=== PATIENT | female | born 1975 | race Caucasian/White ===

== ENCOUNTER 2017-01-02 19:44 | Emergency (ER) | payer OTHER ==
[~2017-01-02] VITALS: Wt 74.8 kg
[2017-01-02] MEDS ORDERED: LAMOTRIGINE100 MG PO (20:06)
[2017-01-02] MEDS ORDERED: ATARAX,VISTARIL50 MG PO (20:06)
[2017-01-02] MEDS ORDERED: GABAPENTIN800 MG PO (20:07)
[2017-01-02] MEDS ORDERED: CITALOPRAM HYDR40 MG PO (20:07)
[2017-01-02] MEDS ORDERED: TOPIRAMATE100 M2 PO (20:07)
[2017-01-02 20:51] LABS: BASO # 0.1 10*3/uL (0.0-0.1); BASO % 0.8 % (0.0-1.0); EOS # 0.2 10*3/uL (0.0-0.4); EOS % 2.5 % (1.0-4.0); HEMATOCRIT 35.9 % (37.0-47.0); HEMOGLOBIN 11.9 g/dl (12.0-16.0); LYMPH # 2.4 10*3/uL (1.3-4.4); LYMPH % 28.3 % (27.0-41.0); MEAN CELL VOLUME 98.9 fl (81.0-99.0); MEAN CORPUSCULAR HGB 32.8 pg (27.0-31.0); MEAN CORPUSCULAR HGB CONC 33.1 g/dl (33.0-37.0); MEAN PLATELET VOLUME 10.8 fl (9.6-12.3); MONO # 0.8 10*3/uL (0.1-1.0); MONO % 9.7 % (3.0-9.0); NEUT % 58.5 % (47.0-73.0); PLATELET COUNT AUTOMATED 344 10*3/uL (130-400); RED BLOOD COUNT 3.63 10*6/uL (4.10-5.10); RED CELL DISTRI WIDTH 12.4 % (0-14.5); WHITE BLOOD COUNT 8.5 10*3/uL (4.8-10.8)
[2017-01-02 21:06] LABS: ALBUMIN 3.7 gm/dl (3.1-4.5); ALKALINE PHOSPHATASE 76 U/L (45-117); BILIRUBIN, TOTAL 0.3 mg/dl (0.2-1.0); BUN 14 mg/dl (7-24); CARBON DIOXIDE 23 mmol/L (21-32); CHLORIDE 108 mmol/L (98-107); EST GLOM FILT AFRICAN AMERICAN > 60 ml/min; GLUCOSE 83 mg/dL (65-99); POTASSIUM 4.1 mmol/L (3.5-5.1); SGOT/AST 25 IU/L (3-35); SGPT/ALT 39 U/L (12-78); SODIUM 140 mmol/L (136-145); TOTAL PROTEIN 7.3 gm/dL (6.4-8.2)
[2017-01-02] MEDS ORDERED: HYDROCODONE BIT1 T11 PO (21:51)
[2017-01-02] MEDS ORDERED: CLINDAMYCIN HC300 MG PO (21:51)
== END 2017-01-02 21:54 | disposition home or self-care (01) ==
LOC: ED 19:44
PROVIDERS: Physician Assistant
DX: L03.211 Cellulitis of face (principal); Z91.041 Radiographic dye allergy status

== ENCOUNTER 2017-07-26 16:10 | Emergency (ER) | payer OTHER ==
[~2017-07-26] VITALS: Wt 74.8 kg
[~2017-07-26 16:10] MED LIST: ATARAX,VISTARIL50 MG PO; CITALOPRAM HYDR40 MG PO; CLINDAMYCIN HC300 MG PO; GABAPENTIN800 MG PO; HYDROCODONE BIT1 T11 PO; LAMOTRIGINE100 MG PO; TOPIRAMATE100 M2 PO
[2017-07-26] MEDS ORDERED: NORCO 5-325 TA1 EACH PO (20:44)
[2017-07-26] MEDS ORDERED: ROBAXIN-750750 MG PO (20:44)
[2017-07-26] MEDS ORDERED: MEDROL DOSEPAK4 MG PO (20:44)
== END 2017-07-26 20:51 | disposition home or self-care (01) ==
LOC: ED 16:10
DX: M54.2 Cervicalgia (principal); Z91.041 Radiographic dye allergy status

== ENCOUNTER 2018-07-28 12:10 | Emergency (ER) | payer OTHER ==
[~2018-07-28] VITALS: Ht 160 cm; Wt 73.5 kg
[~2018-07-28 12:10] MED LIST changes: +MEDROL DOSEPAK4 MG PO; +NORCO 5-325 TA1 EACH PO; +ROBAXIN-750750 MG PO
[2018-07-28] MEDS ORDERED: Motrin,Rufen800 MG PO (12:54)
[2018-07-28] MEDS ORDERED: CLINDAMYCIN HC300 MG PO (12:54)
[2018-07-31] MEDS ORDERED: ZOFRAN4 MG PO (17:29)
[2018-07-31] MEDS ORDERED: Peridex 473 ML473 ML PO (17:29)
== END 2018-07-28 13:51 | disposition home or self-care (01) ==
LOC: ED 12:10
DX: K04.7 Periapical abscess without sinus (principal); Z91.041 Radiographic dye allergy status; Z79.2 Long term (current) use of antibiotics; Z79.899 Other long term (current) drug therapy; Z79.891 Long term (current) use of opiate analgesic

== ENCOUNTER 2019-04-06 03:14 | Emergency (ER) | payer OTHER ==
[~2019-04-06] VITALS: Ht 160 cm; Wt 63.5 kg
--- NOTE | ~2019-04-06 | EKG ---
[place], [place] ELECTROCARDIOGRAM REPORT NAME: ELIZA MCCURDY UNIT #: [id number] ROOM: DOCTOR: EPIPHANY DRAFT REPORT BIRTHDATE: [birth year] [facility] Test Date: 2019-04-06 Test Time: 04:00:18 Pat Name: ELIZA MCCURDY Department: ER Room: Gender: F Cnc Supervisor: Louie Godinez : 1975 Requested By: RODOLFO RODRÍGUEZ Order Number: [id number] Reading MD: Antoni Benz MD Measurements Intervals [place] Rate: 91 P: 36 VA: 214 QRS: 34 QRSD: 102 T: -1 QT: 372 QTc: 458 Interpretive Statements Sinus rhythm Prolonged VA interval Anterior infarct, old Electronically Signed On 04-06-2019 3:44:23 PDT by Antoni Benz MD CM:EKGRPT:ELECTROCARDIOGRAM REPORT [id number] RODOLFO RODRÍGUEZ MD EPIPHANY DRAFT REPORT RODOLFO RODRÍGUEZ MD
[~2019-04-06 03:14] MED LIST changes: +Motrin,Rufen800 MG PO; +Peridex 473 ML473 ML PO; +ZOFRAN4 MG PO
[2019-04-06 03:34] LABS: BILIRUBIN NEGATIVE (NEGATIVE); BLOOD NEGATIVE (NEGATIVE); CLARITY CLEAR (CLEAR); COLOR YELLOW (YELLOW); GLUCOSE NEGATIVE (NEGATIVE); KETONE NEGATIVE (NEGATIVE); LEUKO ESTERASE NEGATIVE (NEGATIVE); NITRITE NEGATIVE (NEGATIVE); SPECIFIC GRAVITY <= 1.005 (1.005-1.030); UROBILINOGEN 0.2 E.U./dl (0.2-1.0)
[2019-04-06 03:42] LABS: EPITHELIAL CELLS 0-5
[2019-04-06 04:05] LABS: BASO # 0.1 10*3/uL (0.0-0.1); BASO % 0.7 % (0.0-1.0); EOS # 0.4 10*3/uL (0.0-0.4); EOS % 3.6 % (1.0-4.0); HEMATOCRIT 36.3 % (37.0-47.0); HEMOGLOBIN 11.6 g/dl (12.0-16.0); LYMPH # 3.7 10*3/uL (1.3-4.4); LYMPH % 37.1 % (27.0-41.0); MEAN CORPUSCULAR HGB 34.5 pg (27.0-31.0); MEAN PLATELET VOLUME 11.6 fl (9.6-12.3); MONO # 0.9 10*3/uL (0.1-1.0); MONO % 8.8 % (3.0-9.0); NEUT % 49.5 % (47.0-73.0); PLATELET COUNT AUTOMATED 239 10*3/uL (130-400); RED BLOOD COUNT 3.36 10*6/uL (4.10-5.10); RED CELL DISTRI WIDTH 12.9 % (0-14.5)
[2019-04-06 04:21] LABS: ALBUMIN 3.7 gm/dl (3.1-4.5); ALKALINE PHOSPHATASE 76 U/L (45-117); BUN 4 mg/dl (7-24); CHLORIDE 116 mmol/L (98-107); CREATININE 0.89 mg/dL (0.55-1.02); LIPASE 143 U/L (73-393); POTASSIUM 3.4 mmol/L (3.5-5.1); SGOT/AST 9 IU/L (3-35); SGPT/ALT 17 U/L (12-78); SODIUM 145 mmol/L (136-145); TOTAL PROTEIN 7.3 gm/dL (6.4-8.2)
[2019-04-06 04:24] LABS: ACT PARTIAL THROMBO TIME 29.3 SECONDS (20.0-32.1); INTERNATIONAL NORM RATIO 0.9 (2.0-3.5)
[2019-04-06 04:42] LABS: TROPONIN I < 0.015 ng/ml (<0.045)
== END 2019-04-06 05:15 | disposition home or self-care (01) ==
LOC: ED 03:14
PROVIDERS: Emergency Medicine Emergency Medical Services
DX: G43.909 Migraine, unspecified, not intractable, without status migrainosus (principal); F41.9 Anxiety disorder, unspecified; F41.0 Panic disorder [episodic paroxysmal anxiety]; R42 Dizziness and giddiness; R20.0 Anesthesia of skin; R20.2 Paresthesia of skin; R07.89 Other chest pain; Z91.041 Radiographic dye allergy status; Z79.899 Other long term (current) drug therapy

== ENCOUNTER 2019-06-03 17:29 | Emergency (ER) | payer OTHER ==
[~2019-06-03] VITALS: Ht 160 cm; Wt 61.2 kg
--- NOTE | ~2019-06-03 | EKG ---
[place], [place] ELECTROCARDIOGRAM REPORT NAME: ELIZA MCCURDY UNIT #: [id number] ROOM: DOCTOR: EPIPHANY DRAFT REPORT BIRTHDATE: [birth year] [facility] Test Date: 2019-06-03 Test Time: 17:30:21 Pat Name: ELIZA MCCURDY Department: Room: Gender: F [employer]: : 1975 Requested By: DEEPALI MORALES Order Number: [id number] Reading MD: Bren Schaefer MD Measurements Intervals [place] Rate: 93 P: 30 SD: 175 QRS: 35 QRSD: 91 T: 4 QT: 352 QTc: 438 Interpretive Statements Sinus rhythm Compared to ECG 04/06/2019 04:00:18 First degree AV block no longer present Myocardial infarct finding no longer present Electronically Signed On 06-14-2019 7:39:48 PDT by Bren Schaefer MD CM:EKGRPT:ELECTROCARDIOGRAM REPORT [id number] DEEPAIL SHEIKH DRAFT REPORT DEEPALI MORALES MD
[2019-06-03 17:49] LABS: BASO # 0.1 10*3/uL (0.0-0.1); BASO % 0.9 % (0.0-1.0); EOS # 0.3 10*3/uL (0.0-0.4); EOS % 3.4 % (1.0-4.0); HEMOGLOBIN 12.4 g/dl (12.0-16.0); LYMPH # 4.2 10*3/uL (1.3-4.4); LYMPH % 42.6 % (27.0-41.0); MEAN CELL VOLUME 106.7 fl (81.0-99.0); MEAN CORPUSCULAR HGB 34.8 pg (27.0-31.0); MEAN CORPUSCULAR HGB CONC 32.6 g/dl (33.0-37.0); MEAN PLATELET VOLUME 11.6 fl (9.6-12.3); MONO # 0.9 10*3/uL (0.1-1.0); MONO % 8.9 % (3.0-9.0); NEUT # 4.3 10*3/uL (2.3-7.9); PLATELET COUNT AUTOMATED 310 10*3/uL (130-400); RED BLOOD COUNT 3.56 10*6/uL (4.10-5.10); RED CELL DISTRI WIDTH 12.2 % (0-14.5); WHITE BLOOD COUNT 9.8 10*3/uL (4.8-10.8)
[2019-06-03 18:07] LABS: ACT PARTIAL THROMBO TIME 29.6 SECONDS (20.0-32.1); INTERNATIONAL NORM RATIO 0.9 (2.0-3.5)
[2019-06-03 18:17] LABS: ALBUMIN 3.7 gm/dl (3.1-4.5); ALKALINE PHOSPHATASE 84 U/L (45-117); BUN 6 mg/dl (7-24); CHLORIDE 110 mmol/L (98-107); CREATININE 0.78 mg/dL (0.55-1.02); POTASSIUM 3.8 mmol/L (3.5-5.1); SGOT/AST 7 IU/L (3-35); SGPT/ALT 14 U/L (12-78); SODIUM 142 mmol/L (136-145)
[2019-06-03 18:23] LABS: TROPONIN I < 0.015 ng/ml (<0.045)
[2019-06-03] MEDS ORDERED: IBU800 MG PO (19:00)
== END 2019-06-03 19:50 | disposition home or self-care (01) ==
LOC: ED 17:29
PROVIDERS: Emergency Medicine
DX: R09.1 Pleurisy (principal); R07.89 Other chest pain; Z79.899 Other long term (current) drug therapy; Z88.6 Allergy status to analgesic agent; Z91.041 Radiographic dye allergy status

== ENCOUNTER 2019-06-17 13:08 | Emergency (ER) | payer OTHER ==
[~2019-06-17] VITALS: Ht 160 cm; Wt 59.0 kg
[~2019-06-17 13:08] MED LIST changes: +IBU800 MG PO
[2019-06-17 13:43] LABS: BASO # 0.1 10*3/uL (0.0-0.1); BASO % 0.7 % (0.0-1.0); EOS # 0.4 10*3/uL (0.0-0.4); EOS % 4.7 % (1.0-4.0); HEMATOCRIT 35.8 % (37.0-47.0); LYMPH # 3.1 10*3/uL (1.3-4.4); LYMPH % 40.3 % (27.0-41.0); MEAN CELL VOLUME 102.6 fl (81.0-99.0); MEAN CORPUSCULAR HGB 34.4 pg (27.0-31.0); MEAN CORPUSCULAR HGB CONC 33.5 g/dl (33.0-37.0); MEAN PLATELET VOLUME 11.4 fl (9.6-12.3); MONO # 0.6 10*3/uL (0.1-1.0); MONO % 7.8 % (3.0-9.0); NEUT # 3.6 10*3/uL (2.3-7.9); NEUT % 46.4 % (47.0-73.0); PLATELET COUNT AUTOMATED 205 10*3/uL (130-400); RED BLOOD COUNT 3.49 10*6/uL (4.10-5.10); RED CELL DISTRI WIDTH 12.3 % (0-14.5); WHITE BLOOD COUNT 7.7 10*3/uL (4.8-10.8)
[2019-06-17 14:03] LABS: ALBUMIN 3.7 gm/dl (3.1-4.5); ALKALINE PHOSPHATASE 72 U/L (45-117); BUN 4 mg/dl (7-24); CHLORIDE 109 mmol/L (98-107); CREATININE 0.75 mg/dL (0.55-1.02); POTASSIUM 3.9 mmol/L (3.5-5.1); SGOT/AST 9 IU/L (3-35); SGPT/ALT 12 U/L (12-78); SODIUM 138 mmol/L (136-145); TOTAL PROTEIN 6.9 gm/dL (6.4-8.2)
[2019-06-17 14:04] LABS: TROPONIN I < 0.015 ng/ml (<0.045)
[2019-06-17 14:17] LABS: ACT PARTIAL THROMBO TIME 31.9 SECONDS (20.0-32.1); INTERNATIONAL NORM RATIO 0.9 (2.0-3.5)
[2019-06-17 15:14] LABS: LIPASE 127 U/L (73-393)
[2019-06-17 15:15] LABS: BETA-HCG, QUANT < 1.0 mIU/mL (1-3)
== END 2019-06-17 20:29 | disposition home or self-care (01) ==
LOC: ED 13:08
PROVIDERS: Emergency Medicine
DX: R07.89 Other chest pain (principal); M54.2 Cervicalgia; R22.1 Localized swelling, mass and lump, neck; R20.2 Paresthesia of skin; G43.909 Migraine, unspecified, not intractable, without status migrainosus; Z91.041 Radiographic dye allergy status; Z88.5 Allergy status to narcotic agent; Z79.899 Other long term (current) drug therapy; Z87.891 Personal history of nicotine dependence

== ENCOUNTER 2019-11-25 09:18 | Emergency (ER) | payer OTHER ==
[~2019-11-25] VITALS: Ht 160 cm; Wt 68.0 kg
[2019-11-25 10:37] LABS: BASO # 0.1 10*3/uL (0.0-0.1); BASO % 0.8 % (0.0-1.0); EOS # 0.2 10*3/uL (0.0-0.4); EOS % 3.2 % (1.0-4.0); HEMATOCRIT 40.4 % (37.0-47.0); HEMOGLOBIN 13.1 g/dl (12.0-16.0); LYMPH % 31.7 % (27.0-41.0); MEAN CELL VOLUME 105.8 fl (81.0-99.0); MEAN CORPUSCULAR HGB 34.3 pg (27.0-31.0); MEAN CORPUSCULAR HGB CONC 32.4 g/dl (33.0-37.0); MEAN PLATELET VOLUME 11.1 fl (9.6-12.3); MONO # 0.8 10*3/uL (0.1-1.0); MONO % 12.4 % (3.0-9.0); NEUT # 3.2 10*3/uL (2.3-7.9); NEUT % 51.4 % (47.0-73.0); PLATELET COUNT AUTOMATED 248 10*3/uL (130-400); RED BLOOD COUNT 3.82 10*6/uL (4.10-5.10); RED CELL DISTRI WIDTH 12.8 % (0-14.5); WHITE BLOOD COUNT 6.3 10*3/uL (4.8-10.8)
[2019-11-25 10:50] LABS: ACT PARTIAL THROMBO TIME 29.7 SECONDS (20.0-32.1); INTERNATIONAL NORM RATIO 0.9 (2.0-3.5)
[2019-11-25 10:59] LABS: ALBUMIN 3.4 gm/dl (3.1-4.5); ALKALINE PHOSPHATASE 87 U/L (45-117); BUN 11 mg/dl (7-24); CHLORIDE 109 mmol/L (98-107); CREATININE 0.83 mg/dL (0.55-1.02); LIPASE 150 U/L (73-393); POTASSIUM 4.1 mmol/L (3.5-5.1); SGOT/AST 6 IU/L (3-35); SGPT/ALT 14 U/L (12-78); SODIUM 140 mmol/L (136-145); TOTAL PROTEIN 7.8 gm/dL (6.4-8.2)
[2019-11-25 11:01] LABS: BETA-HCG, QUANT < 1.0 mIU/mL (1-3); TROPONIN I < 0.015 ng/ml (<0.045)
[2019-11-25 12:29] LABS: BILIRUBIN NEGATIVE (NEGATIVE); CLARITY CLEAR (CLEAR); COLOR YELLOW (YELLOW); GLUCOSE NEGATIVE (NEGATIVE)
[2019-11-25 12:30] LABS: BLOOD NEGATIVE (NEGATIVE); KETONE NEGATIVE (NEGATIVE); LEUKO ESTERASE NEGATIVE (NEGATIVE); NITRITE NEGATIVE (NEGATIVE); PH 7.5 (5.0-9.0); UROBILINOGEN 0.2 E.U./dl (0.2-1.0)
[2019-11-25 12:31] LABS: BACTERIA TRACE
== END 2019-11-25 15:19 | disposition home or self-care (01) ==
LOC: ED 09:18
PROVIDERS: Nurse Practitioner Family
DX: D25.9 Leiomyoma of uterus, unspecified (principal); R35.0 Frequency of micturition; Z91.041 Radiographic dye allergy status; Z88.5 Allergy status to narcotic agent; Z79.899 Other long term (current) drug therapy

== ENCOUNTER 2021-04-11 14:56 | Emergency (ER) | payer OTHER ==
[~2021-04-11] VITALS: Ht 160 cm; Wt 74.8 kg
[2021-04-11] MEDS ORDERED: MEDROL DOSEPAK4 MG PO (15:22)
[2021-04-11] MEDS ORDERED: VIBRAMYCIN100 MG PO (15:22)
== END 2021-04-11 15:45 | disposition home or self-care (01) ==
LOC: ED 14:56
DX: R21 Rash and other nonspecific skin eruption (principal); Z91.041 Radiographic dye allergy status; Z88.5 Allergy status to narcotic agent; Z79.899 Other long term (current) drug therapy